=== PATIENT | female | born 1960 | race Caucasian/White ===

== ENCOUNTER 2019-04-05 11:19 | Outpatient (CLI) | payer MEDICARE, MEDICAID ==
--- NOTE | 2019-04-06 15:23 | NM ---
NUCLEAR MEDICINE MIBG SCAN WHOLE BODY: DATE: 04/06/2019. HISTORY: A 58-year-old female with a personal history of left adrenal pheochromocytoma surgically resected pascual barrera, in 1998 and 2013. TECHNIQUE: 10.6 mCi of I-123 MIBG injected IV. 24-hour post injection whole body scintigraphy in anterior and posterior views. SPECT images provided by technologist of the upper abdomen. Attenuation correction CT upper abdomen. SPECT/ CT fusion images. FINDINGS: There is uptake at midline in the face, presumably in the nose, in the bilateral parotid and submandi bular glands, liver, and transverse colon. No uptake in the spleen. No other focal areas of uptake t hat are suspicious for paraganglioma. IMPRESSION: Negative. POS: [facility]
== END 2019-04-05 11:20 | disposition home or self-care (01) ==
LOC: NM 11:19
PROVIDERS: ATTEND Internal Medicine
DX: Z08 Encounter for follow-up examination after completed treatment for malignant neoplasm (principal); Z86.03 Personal history of neoplasm of uncertain behavior
CPT/HCPCS: 78075; A9582